=== PATIENT | female | born 1960 ===

== ENCOUNTER 2017-03-08 23:30 | Emergency (ER) | payer OTHER ==
[2017-03-08 23:40] VITALS: BP 133/86; PULSE 87; RESP 16; TEMP 98.2; O2SAT 99
--- NOTE | 2017-03-08 23:49 | ED PDOC ---
Arrival/HPI - General Chief Complaint: Abdominal Pain Time Seen by Provider: 03/08/17 23:44 Historian: Patient, Other (Neighbor) - History of Present Illness Narrative History of Present Illness (Text): 03/08/17 23:48 Rand Thakkar is a 57 year old female, whose past medical history includes asthma, anemia, COPD, and diabetes, who presents to the Emergency department complaining of abdominal pain. Patient states she has been experiencing diffuse abdominal pain with associated nausea, vomiting, and diarrhea since 17:30 today. Patient notes she had rice and chicken at her neighbor's earlier today. Patient states she took Movantik earlier today. Patient also notes she is scheduled for a bone marrow biopsy on 03/10/17 secondary to her anemia. Patient denies any fever, chills, chest pain, shortness of breath, urinary symptoms, back pain, neck pain, headache, dizziness, or any other complaints. Head Of Marketing Adometry/Oncologist: Dr. Gaviria Time/Duration: 4-6 hours (17:30), Other Symptom Onset: Gradual Symptom Course: Unchanged Activities at Onset: Light Context: Home Past Medical History - Provider Review Nursing Documentation Reviewed: Yes - Pulmonary Hx Respiratory Disorders: Yes Hx Asthma: Yes - Endocrine/Metabolic Hx Endocrine Disorders: Yes Hx Diabetes Mellitus Type 2: Yes - Psychiatric Hx Substance Use: No - Surgical History Hx Hysterectomy: Yes Family/Social History - Physician Review Nursing Documentation Reviewed: Yes Family/Social History: Unknown Family HX Smoking Status: Never Smoked Hx Alcohol Use: No Hx Substance Use: No Allergies/Home Meds Allergies/Adverse Reactions: Allergies iodine Allergy (Verified 03/08/17 23:36) ANGIOEDEMA Home Medications: Home Meds Medication Instructions Recorded Confirmed Unobtainable 03/08/17 03/08/17 Review of Systems - Physician Review All systems were reviewed & negative as marked: Yes - Review of Systems Constitutional: Normal. absent: Fevers Eyes: Normal ENT: Normal Respiratory: Normal. absent: SOB, Cough Cardiovascular: Normal. absent: Chest Pain Gastrointestinal: Abdominal Pain, Diarrhea, Nausea, Vomiting Genitourinary Female: Normal. absent: Dysuria, Frequency, Hematuria, Urine Output Changes Musculoskeletal: Normal. absent: Back Pain, Neck Pain Skin: Normal. absent: Rash Neurological: Normal. absent: Headache, Dizziness Endocrine: Normal Hemo/Lymphatic: Normal Psychiatric: Normal Physical Exam Vital Signs Reviewed: Yes Vital Signs Temp Pulse Resp BP Pulse Ox 03/08/17 23:37 98.2 F 87 16 133/86 99 Temperature: Afebrile Blood Pressure: Normal Pulse: Regular Respiratory Rate: Normal Appearance: Positive for: Well-Appearing, Non-Toxic, Comfortable Pain Distress: None Mental Status: Positive for: Alert and Oriented X 3 - Systems Exam Head: Present: Atraumatic, Normocephalic Pupils: Present: PERRL Extroacular Muscles: Present: EOMI Conjunctiva: Present: Normal Mouth: Present: Moist Mucous Membranes Neck: Present: Normal Range of Motion Respiratory/Chest: Present: Clear to Auscultation, Good Air Exchange. No: Respiratory Distress, Accessory Muscle Use Cardiovascular: Present: Regular Rate and Rhythm, Normal S1, S2. No: Murmurs Abdomen: Present: Tenderness (Diffuse abdominal tenderness), Normal Bowel Sounds. No: Distention, Peritoneal Signs Upper Extremity: Present: Normal Inspection. No: Cyanosis, Edema Lower Extremity: Present: Normal Inspection. No: Edema Neurological: Present: GCS=15, CN II-XII Intact, Speech Normal Skin: Present: Warm, Dry, Normal Color. No: Rashes Psychiatric: Present: Alert, Oriented x 3, Normal Insight, Normal Concentration Medical Decision Making ED Course and Treatment: 03/08/17 23:48 Impression: 57 year old female complaining of diffuse abdominal pain, nausea, vomiting, and diarrhea sine 17:30. Plan: -- CT Abdomen and Pelvis -- EKG -- Labs, blood type and screen, lipase -- IV fluids -- Zofran -- Pepcid -- Dilaudid -- Reassess and disposition Prior Visits: Notes and results from previous visits were reviewed. On 11/16/2016, pt was seen in the Emergency department for shortness of breath and wheezing. Pt was admitted to the hospital for further evaluation. Progress Notes: 03/09/17 00:22 RN reports pt refusing CT scan. 03/09/17 00:41 Reviewed EKG, NSR at [address]-segment elevations or depressions, no T-wave inversions, normal intervals. 03/09/17 01:48 Reviewed Chest X-ray, shows no acute processes. 03/09/17 01:51 CT Abdomen and Pelvis shows: 1. Spleen is slightly enlarged measuring 13.5 CM anteroposterior. 2. Pancreas is partially fatty replaced. There is some fatty stranding inferior to the pancreas. While this may represent "marlene mesentery", the possibility of a mild pancreatitis is not entirely excluded. Please correlate with clinical and laboratory parameters. Marlene mesentery is nonspecific but can be seen with increased incidence in lymphoma or similar. There is also mesenteric and retroperitoneal lymphadenopathy. Please correlate clinically. 3. Additional incidental and/or chronic findings as described. 03/09/17 02:44 Discussed results and plan with pt. Pt was offered hospital admission for further evaluation of symptoms. Pt states she has personal matters to attend to and will return tomorrow. Patient is choosing to leave against medical advice. I have personally explained to the patient that choosing to do so may result in permanent bodily harm or . I have discussed at great length that without further evaluation and monitoring there may be unforeseen circumstances and/or deterioration causing permanent bodily harm or as a result of their choice. The patient is alert, oriented, and shows the mental capacity to make clear decisions regarding the patients health care at this time. The patient continues to wish to leave against medical advice. In light of the patients decision to leave against medical advice, patient is aware of the importance to following up as instructed. The patient has been advised that they should return to the emergency room immediately if they change their mind at any time, or if their condition begins to change or worsen in any way. - Lab Interpretations Lab Results: 03/09/17 00:15 03/09/17 00:15 Lab Results 03/09/17 00:48: Blood Type Confirm A POSITIVE 03/09/17 00:15: Blood Type A POSITIVE, Antibody Screen Positive, Antibody Identification Anti e, BBK History Checked No verified bt 03/09/17 00:15: WBC 6.2, RBC 2.34 L, Hgb 7.0 L, Hct 21.1 L, MCV 90.2, MCH 29.9, MCHC 33.2, RDW 19.1 H, Plt Count 56 L, MPV 9.2 03/09/17 00:15: Sodium 140, Potassium 3.8, Chloride 103, Carbon Dioxide 27, Anion Gap 14, BUN 18, Creatinine 0.7, Est GFR ( Amer) > 60, Est GFR (Non- Af Amer) > 60, Random Glucose 145 H, Calcium 9.5, Total Bilirubin 0.7, AST 43 H , ALT 37, Alkaline Phosphatase 102, Total Protein 8.6 H, Albumin 4.3, Globulin 4.3, Albumin/Globulin Ratio 1.0 L, Lipase 34 03/09/17 00:15: PT 14.0 H, INR 1.28 H, APTT 31.8 I have reviewed the lab results: Yes - RAD Interpretation Narrative RAD Interpretations (Text): CT Abdomen and Pelvis shows: Lower thorax: There is minimal bibasilar atelectasis. Small hiatal hernia. ABDOMEN: Liver: There are no focal liver lesions present. Gallbladder and bile ducts: The gallbladder is normal. No calcified stones. No ductal dilation. Pancreas: Pancreas is partially fatty replaced. There is some fatty stranding inferior to the pancreas. While this may represent "marlene mesentery", the possibility of a mild pancreatitis is not entirely excluded. Please correlate with clinical and laboratory parameters. Marlene mesentery is nonspecific but can be seen with increased incidence in lymphoma or similar. There is also mesenteric and retroperitoneal lymphadenopathy. Please correlate clinically. Spleen: Spleen is slightly enlarged measuring 13.5 CM anteroposterior. Adrenals: The adrenal glands are normal. Kidneys and ureters: The kidneys are normal. No obstructing stones. No hydronephrosis. Stomach and bowel: The stomach is normal. There is no evidence of intestinal obstruction. No mucosal thickening. Appendix: No findings to suggest acute appendicitis. PELVIS: Bladder: The bladder is normal. No stones. Reproductive: There has been a hysterectomy. ABDOMEN and PELVIS: Intraperitoneal space: There is no evidence of free intraperitoneal fluid. There is no free intraperitoneal air. Bones/joints: No acute fracture. No dislocation. Soft tissues: Unremarkable. Vasculature: The aorta demonstrates mild atherosclerotic calcification. No abdominal aortic aneurysm. Lymph nodes: Unremarkable. No enlarged lymph nodes. IMPRESSION: 1. Spleen is slightly enlarged measuring 13.5 CM anteroposterior. 2. Pancreas is partially fatty replaced. There is some fatty stranding inferior to the pancreas. While this may represent "marlene mesentery", the possibility of a mild pancreatitis is not entirely excluded. Please correlate with clinical and laboratory parameters. Marlene mesentery is nonspecific but can be seen with increased incidence in lymphoma or similar. There is also mesenteric and retroperitoneal lymphadenopathy. Please correlate clinically. 3. Additional incidental and/or chronic findings as described. Chest X-ray shows no acute processes. Radiology Orders: 03/08/17 23:55 ABD & PELVIS W/O PO OR IV CONT [CT] Stat CHEST PORTABLE [RAD] Stat Secretary Receptionist: ED Physician, Radiologist - EKG Interpretation Interpreted by ED Physician: Yes Type: 12 lead EKG - Medication Orders Current Medication Orders: Discontinued Medications Famotidine (Pepcid) 20 mg IVP STAT STA Stop: 03/08/17 23:57 Last Admin: 03/09/17 00:29 Dose: 20 mg IVP Administration Document 03/09/17 00:29 CALE (Rec: 03/09/17 00:30 CALE [id number]) Charges for Administration # of IVP Administrations 1 Hydromorphone HCl (Dilaudid) 1 mg IVP STAT STA Stop: 03/08/17 23:57 Last Admin: 03/09/17 00:28 Dose: 1 mg MAR Pain Assessment Document 03/09/17 00:28 CALE (Rec: 03/09/17 00:28 CALE [id number]) Pain Reassessment Is this a pain reassessment? Yes IVP Administration Document 03/09/17 00:28 CALE (Rec: 03/09/17 00:28 CALE [id number]) Charges for Administration # of IVP Administrations 1 Sodium Chloride (Sodium Chloride 0.9%) 1,000 mls @ 999 mls/hr IV .Q1H1M STA Stop: 03/09/17 00:56 Last Admin: 03/09/17 00:30 Dose: 999 mls/hr eMAR Start Stop Document 03/09/17 00:30 CALE (Rec: 03/09/17 00:30 CALE [id number]) Intravenous Solution Start Date 03/09/17 Start Time 00:30 End Date 03/09/17 End time 01:30 Total Infusion Time 60 Ondansetron HCl (Zofran Inj) 4 mg IVP ONCE ONE Stop: 03/08/17 23:57 Last Admin: 03/09/17 00:29 Dose: 4 mg IVP Administration Document 03/09/17 00:29 CALE (Rec: 03/09/17 00:29 CALE [id number]) Charges for Administration # of IVP Administrations 1 - Scribe Statement The provider has reviewed the documentation as recorded by the Mukesh Alvarado Provider Scribe Attestation: All medical record entries made by the Scribe were at my direction and personally dictated by me. I have reviewed the chart and agree that the record accurately reflects my personal performance of the history, physical exam, medical decision making, and the department course for this patient. I have also personally directed, reviewed, and agree with the discharge instructions and disposition. Disposition/Present on Arrival - Present on Arrival Any Indicators Present on Arrival: No History of DVT/PE: No History of Uncontrolled Diabetes: No Urinary Catheter: No History of Decub. Ulcer: No History Surgical Site Infection Following: None - Disposition Have Diagnosis and Disposition been Completed?: Yes Diagnosis: Abdominal pain, Anemia Disposition: AGAINST MEDICAL ADVICE Disposition Time: 02:49 Condition: STABLE Referrals: Cruz Mcbride MD [Primary Care Provider] - Follow up with primary Forms: [employer] ([place]ic)
[2017-03-08] MEDS ORDERED: Sodium Chloride 0.9% 1,000 ML IV STA (23:56)
[2017-03-08] MEDS ORDERED: HYDROmorphone 1 mg/ml ISec IVP STA (23:56)
[2017-03-09 00:41] LABS: MEAN CELL VOLUME 90.2 fl (80.0-105.0); MEAN CORPUSCULAR HEMOGLOBIN 29.9 pg (25.0-35.0); MEAN CORPUSCULAR HGB CONC 33.2 g/dl (31.0-37.0); MEAN PLATELET VOLUME 9.2 fl (7.0-11.0); RED CELL DISTRIBUTION WIDTH 19.1 % (11.5-14.5); WHITE BLOOD COUNT 6.2 10^3/ul (4.5-11.0)
[2017-03-09 00:56] LABS: HEMATOCRIT 21.1 % (36.0-48.0)
[2017-03-09 01:03] LABS: ALKALINE PHOSPHATASE 102 U/L (38-126); ALT/SGPT 37 U/L (7-56); AST/SGOT 43 U/L (14-36); BILIRUBIN,TOTAL 0.7 mg/dL (0.2-1.3); BLOOD UREA NITROGEN 18 mg/dL (7-21); CALCIUM 9.5 mg/dL (8.4-10.5); CARBON DIOXIDE 27 mmol/L (21-33); CHLORIDE 103 mmol/L (98-107); GFR AFRICAN-AMERICAN > 60; GLUCOSE,RANDOM 145 mg/dL (70-110); LIPASE 34 U/L (23-300); POTASSIUM 3.8 mmol/L (3.6-5.0); SODIUM 140 mmol/L (132-148); TOTAL PROTEIN 8.6 g/dL (5.8-8.3)
[2017-03-09 01:05] LABS: INR 1.28 (0.93-1.08); PARTIAL THROMBOPLASTIN TIME 31.8 Seconds (25.1-36.5)
--- NOTE | 2017-03-09 01:49 | CT ---
EXAM: CT Abdomen and Pelvis Without Intravenous Contrast CLINICAL HISTORY: 57 years old, female; Pain; Abdominal pain; Generalized TECHNIQUE: Axial computed tomography images of the abdomen and pelvis without intravenous contrast. All CT scans at this facility use one or more dose reduction techniques, viz.: automated exposure control; ma/kV adjustment per patient size (including targeted exams where dose is matched to indication; i.e. head); or iterative reconstruction technique. Coronal and sagittal reformatted images were created and reviewed. COMPARISON: No relevant prior studies available. FINDINGS: Lower thorax: There is minimal bibasilar atelectasis. Small hiatal hernia. ABDOMEN: Liver: There are no focal liver lesions present. Gallbladder and bile ducts: The gallbladder is normal. No calcified stones. No ductal dilation. Pancreas: Pancreas is partially fatty replaced. There is some fatty stranding inferior to the pancreas. While this may represent "marlene mesentery", the possibility of a mild pancreatitis is not entirely excluded. Please correlate with clinical and laboratory parameters. Marlene mesentery is nonspecific but can be seen with increased incidence in lymphoma or similar. There is also mesenteric and retroperitoneal lymphadenopathy. Please correlate clinically. Spleen: Spleen is slightly enlarged measuring 13.5 CM anteroposterior. Adrenals: The adrenal glands are normal. Kidneys and ureters: The kidneys are normal. No obstructing stones. No hydronephrosis. Stomach and bowel: The stomach is normal. There is no evidence of intestinal obstruction. No mucosal thickening. Appendix: No findings to suggest acute appendicitis. PELVIS: Bladder: The bladder is normal. No stones. Reproductive: There has been a hysterectomy. ABDOMEN and PELVIS: Intraperitoneal space: There is no evidence of free intraperitoneal fluid. There is no free intraperitoneal air. Bones/joints: No acute fracture. No dislocation. Soft tissues: Unremarkable. Vasculature: The aorta demonstrates mild atherosclerotic calcification. No abdominal aortic aneurysm. Lymph nodes: Unremarkable. No enlarged lymph nodes. IMPRESSION: 1. Spleen is slightly enlarged measuring 13.5 CM anteroposterior. 2. Pancreas is partially fatty replaced. There is some fatty stranding inferior to the pancreas. While this may represent "marlene mesentery", the possibility of a mild pancreatitis is not entirely excluded. Please correlate with clinical and laboratory parameters. Marlene mesentery is nonspecific but can be seen with increased incidence in lymphoma or similar. There is also mesenteric and retroperitoneal lymphadenopathy. Please correlate clinically. 3. Additional incidental and/or chronic findings as described.
--- NOTE | 2017-03-09 08:23 | RAD ---
HISTORY: abdominal pain COMPARISON: No prior. FINDINGS: LUNGS: No active pulmonary disease. PLEURA: No significant pleural effusion identified, no pneumothorax apparent. CARDIOVASCULAR: Normal. OSSEOUS STRUCTURES: No significant abnormalities. VISUALIZED UPPER ABDOMEN: Normal. OTHER FINDINGS: None. IMPRESSION: No active disease.
--- NOTE | 2017-03-09 10:52 | CARD ---
APPROVED REPORT EKG Measurement Heart [id number] <Conclusion> Normal sinus rhythm Normal ECG
== END 2017-03-09 02:50 | disposition left against medical advice (07) ==
LOC: ED 23:30
DX: R10.9 Unspecified abdominal pain (principal); D64.9 Anemia, unspecified; E11.9 Type 2 diabetes mellitus without complications
CPT/HCPCS: 71010; 74176; 80053; 83690; 85027; 85610; 85730; 86850; 86870; 86900; 93005; 96361; 96374; 96375; 99283; J1170; J2405; J7040